=== PATIENT | male | born 1965 | race Caucasian/White ===

== ENCOUNTER → 2020-04-11 | Outpatient (CLI) | payer OTHER ==
--- NOTE | 2020-04-11 17:32 | XR ---
EXAMINATION TYPE: XR abdomen 2V DATE OF EXAM: 04/11/2020 COMPARISON: NONE HISTORY: 55-year-old male R102, pelvic pain FINDINGS: Small pelvic phleboliths. Moderate stool burden. No dilated small bowel or air-fluid levels. No evidence for free intraperitoneal air. No suspicious calcifications seen. IMPRESSION: No evidence for free air or bowel obstruction. Moderate stool burden.
== END | disposition home or self-care (01) ==
LOC: RADXRYALE 15:47
PROVIDERS: ATTEND Physician Assistant Medical
DX: R10.2 Pelvic and perineal pain (principal)
CPT/HCPCS: 74019

== ENCOUNTER → 2020-07-10 | Outpatient (CLI) | payer OTHER ==
--- NOTE | 2020-07-10 16:03 | XR ---
EXAMINATION TYPE: XR chest 2V DATE OF EXAM: 07/10/2020 COMPARISON: None INDICATION: Cough TECHNIQUE: Frontal and lateral views of the chest are obtained. FINDINGS: The heart size is normal. The pulmonary vasculature is normal. The lungs are clear. There is hyperinflation flattening the diaphragms compatible COPD. Old left rib fractures are evident. Right rib fractures are present laterally. IMPRESSION: 1. No acute pulmonary process. 2. COPD
== END | disposition home or self-care (01) ==
LOC: RADXRYALE 14:06
PROVIDERS: ATTEND Physician Assistant Medical
DX: J44.9 Chronic obstructive pulmonary disease, unspecified (principal)
CPT/HCPCS: 71046

== ENCOUNTER → 2024-09-03 | Outpatient (CLI) | payer OTHER ==
--- NOTE | 2024-09-03 15:56 | US ---
EXAMINATION TYPE: US carotid duplex BILAT DATE OF EXAM: 09/03/2024 COMPARISON: NONE CLINICAL INDICATION: Male, 59 years old with history of R51.9 Heache; Recurring headaches, recent new onset of uncontrolled HTN on meds x years; Former smoker x 13 years. Additional History: .... TECHNIQUE: Grayscale, color Doppler and spectral Doppler evaluation of the bilateral carotid systems and vertebral arteries. Indirect Doppler criteria was utilized. FINDINGS: EXAM MEASUREMENTS: RIGHT: Peak Systolic Velocity (PSV) cm/sec ----- Right CCA: 85 ----- Right ICA: 79 ----- Right ECA: 108 ICA/CCA ratio: 0.9 RIGHT: End Diastole cm/sec ----- Right CCA: 21 ----- Right ICA: 21 ----- Right ECA: 12 LEFT: Peak Systolic Velocity (PSV) cm/sec ----- Left CCA: 84 ----- Left ICA: 64 ----- Left ECA: 128 ICA/CCA ratio: 0.8 LEFT: End Diastole cm/sec ----- Left CCA: 19 ----- Left ICA: 18 ----- Left ECA: 23 VERTEBRALS (direction of flow): Right Vertebral: Antegrade Left Vertebral: Antegrade Rhythm: Normal WARE TESTER NOTES: No intimal thickening, plaque, or elevated velocities seen. Color Doppler imaging shows patency with blood flow throughout the carotid artery. Spectral waveforms are within normal limits. IMPRESSION: No evidence for hemodynamically significant stenosis. Criteria for Assigning % of Stenosis / Diameter reduction (Estimation based on the indirect measurements of the internal carotid artery velocities (ICA PSV). 1. Normal (no stenosis)=ICA PSV < 125 cm/s: ratio < 2.0: ICA EDV<40 cm/s. 2. Less than 50% stenosis=ICA PSV < 125 cm/s: ratio < 2.0: ICA EDV<40 cm/s. 3. 50 to 69% stenosis=ICA PSV of 125 to 230 cm/s: ration 2.0 ? 4.0: ICA EDV 40-100 cm/s. 4. Greater than 70% stenosis to near occlusion= ICA PSV > 230 cm/s: ratio > 4.0: ICA EDV > 100 cm/s. 5. Near occlusion= ICA PSV velocities may be low or undetectable: variable ratio and ICA EDV. 6. Total occlusion=unable to detect flow. [facility], , 09/03/2024 3:54 PM
--- NOTE | 2024-09-03 21:07 | MR ---
EXAMINATION TYPE: MR angio head wo con DATE OF EXAM: 09/03/2024 5:02 PM COMPARISON: None. CLINICAL INDICATION: Male, 59 years old with history of R519, Z823, I10, Family history of stroke, hy pertension, headaches. TECHNIQUE: 3-D [id number] Axial with MIP reconstruction created on a separate workstation.. IV Contrast: mL (None, if empty) FINDINGS: Vertebral arteries: The vertebral arteries are patent. Vertebral arteries are: Codominant. Basilar artery: The basilar artery is intact. The basilar artery bifurcation is normal. Internal Carotid arteries: The cervical, petrous, cavernous and supraclinoid segments are normal. DIRK: Patent with no evidence of aneurysm. ACOM: Present without evidence of aneurysm. MCA: Patent with no evidence of aneurysm. CLINICAL SOCIAL WORK AIDE: Patent with no evidence of aneurysm. PCOM: Hypoplastic bilaterally. IMPRESSION: No evidence of aneurysm or significant stenosis. 09/03/2024 9:01 PM,09/03/2024 5:02 PM,Pradeep Wh[facility],MR angio head [facility],[id number] [facility], , 09/03/2024 9:04 PM
== END | disposition home or self-care (01) ==
LOC: RADUSWWP 15:17
PROVIDERS: ATTEND Family Medicine
DX: I10 Essential (primary) hypertension (principal); E78.2 Mixed hyperlipidemia; R51.9 Headache, unspecified; Z83.2 Family history of diseases of the blood and blood-forming organs and certain disorders involving the immune mechanism
CPT/HCPCS: 70544; 93880

== ENCOUNTER → 2024-10-26 | Outpatient (CLI) | payer OTHER ==
--- NOTE | 2024-10-28 11:29 | CA ---
Transthoracic Echo Report Name: Giorgi Becerra Age: 59 Gender: M : 1965 Exam Date: 10/26/2024 15:52 Exam Location: [facility] Ht (in): 69 Wt (lb): 190 Ordering Physician: Ulysses Cole DO Attending/Referring Phys: Mell Melendez PAC [employer] Jessica Mcdonald RDCS Procedure CPT: Indications: I10 HTN E78.2 MIXED HYPERLIPIDEMIA Cardiac Hx: Technical Quality: Technically difficult study Contrast 1: Definity Total Dose (mL): 2 Contrast 2: Total Dose (mL): MEASUREMENTS (Male / Female) Normal Values 2D ECHO LV Diastolic Diameter PLAX 4.6 cm 4.2 - 5.9 / 3.9 - 5.3 cm LV Systolic Diameter PLAX 2.2 cm IVS Diastolic Thickness 1.1 cm 0.6 - 1.0 / 0.6 - 0.9 cm LVPW Diastolic Thickness 1.2 cm 0.6 - 1.0 / 0.6 - 0.9 cm LV Relative Wall Thickness 0.5 RV Internal Dim ED PLAX 3.9 cm LVOT Diameter 1.8 cm LV Diastolic Volume MOD BP 74.5 cm??? 67 - 155 / 56 - 104 cm??? LV Systolic Volume MOD BP 28.6 cm??? 22 - 58 / 19 - 49 cm??? LV Ejection Fraction MOD BP 61.6 % >= 55 % LV Cardiac Index MOD BP 1355.8 cm???/min???m??? LV Diastolic Volume MOD 4C 77.7 cm??? LV Systolic Volume MOD 4C 43.4 cm??? LV Ejection Fraction MOD 4C 44.1 % LV Cardiac Index MOD 4C 1012.4 cm???/min???m??? LV Diastolic Length 4C 9.2 cm LV Systolic Length 4C 7.7 cm LV Diastolic Volume MOD 2C 64.5 cm??? LV Systolic Volume MOD 2C 17.5 cm??? LV Ejection Fraction MOD 2C 72.9 % LV Cardiac Index MOD 2C 1388.5 cm???/min???m??? LV Diastolic Length 2C 8.3 cm LV Systolic Length 2C 7.1 cm LA Volume 66.3 cm??? 18 - 58 / 22 - 52 cm??? LA Volume Index 32.1 cm???/m??? 16 - 28 cm???/m??? DOPPLER LVOT Peak Velocity 95.0 cm/s LVOT Peak Gradient 3.6 mmHg LVOT Velocity Time Integral 21.7 cm LVOT Stroke Volume 54.6 cm??? LVOT Stroke Volume Index 27.0 ml/m??? LVOT Cardiac Index 1612.8 cm???/min???m??? MV Area PHT 3.2 cm??? Mitral E Point Velocity 72.4 cm/s Mitral A Point Velocity 52.2 cm/s Mitral E to A Ratio 1.4 MV Deceleration Time 235.5 ms MV E' Velocity 8.1 cm/s Mitral E to MV E' Ratio 8.9 TR Peak Velocity 257.2 cm/s TR Peak Gradient 26.5 mmHg FINDINGS Left Ventricle Mildly increased septal wall thickness. Left ventricular cavity size normal. Normal left ventricular systolic function with no obvious regional wall motion abnormalities. Left ventricular ejection fraction is estimated at 60 %. Normal left ventricular diastolic filling pattern. Right Ventricle Normal right ventricular size and function. Right Atrium Normal right atrial size. Left Atrium Mildly increased left atrial volume. Mildly increased left atrial area. Mitral Valve Structurally normal mitral valve. Mild mitral regurgitation. Aortic Valve Trileaflet aortic valve. No aortic stenosis. Mild aortic regurgitation. Tricuspid Valve Structurally normal tricuspid valve. Mild tricuspid regurgitation. Pulmonic Valve Structurally normal pulmonic valve. Pericardium No pericardial effusion. Aorta Normal size aortic root and proximal ascending aorta. CONCLUSIONS LVEF 60% Mild concentric LVH No obvious regional wall motion abnormality Mild left atrial dilatation Mild mitral regurgitation, mild aortic regurgitation, mild tricuspid regurgitation Previewed by: Dr William Lim (Electronically Signed) Final Date: 28 Oct 2024 11:28
== END | disposition home or self-care (01) ==
LOC: RADECHMAIN 15:46
PROVIDERS: ATTEND Family Medicine
DX: I10 Essential (primary) hypertension (principal); E78.2 Mixed hyperlipidemia; R53.83 Other fatigue; I08.3 Combined rheumatic disorders of mitral, aortic and tricuspid valves
CPT/HCPCS: 93306; Q9957